=== PATIENT | female | born 1995 | race Caucasian/White ===

== ENCOUNTER 2017-09-07 22:20 | Emergency (ER) | payer BC, OTHER ==
--- NOTE | 2017-09-07 23:28 | EDPHYS ---
Physician Documentation [facility] Name: Brittany Wilson Age: 21 yrs Sex: Female : 1995 Arrival Date: 09/07/2017 Time: 22:21 Bed 14 Private MD: ED Physician Mike Huynh HPI: 09/08 00:13 This 21 yrs old Female presents to ER via Ambulatory with complaints of snw Shoulder Pain. 00:13 The patient or guardian complains of pain. right trapezius. Context: The problem was snw sustained at home, resulted from an unknown reason, The patient reports no decreased range of motion. The patient reports no obvious deformity. Onset: The symptoms/episode began/occurred suddenly, 3 day(s) ago, and became persistent. Associated signs and symptoms: The patient has no apparent associated signs or symptoms, Pertinent negatives: no fever, no swelling, no redness, no , no shortness of breath. 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 - Social history:: Smoking status: Patient/guardian denies using tobacco. ROS: 09/08 00:11 Constitutional: Negative for fever, chills, and weight loss, Eyes: Negative for injury, snw pain, redness, and discharge, ENT: Negative for injury, pain, and discharge, Neck: Negative for injury, pain, and swelling, Cardiovascular: Negative for chest pain, palpitations, and edema, Respiratory: Negative for shortness of breath, cough, wheezing, and pleuritic chest pain, Abdomen/GI: Negative for abdominal pain, nausea, vomiting, diarrhea, and constipation, Back: Negative for injury and pain, : Negative for injury, bleeding, discharge, and swelling, Skin: Negative for injury, rash, and discoloration, Neuro: Negative for headache, weakness, numbness, tingling, and seizure. MS/extremity: Positive for pain, of the right shoulder. Exam: 00:11 Constitutional: This is a well developed, well nourished patient who is awake, alert, snw and in no acute distress. Head/Face: Normocephalic, atraumatic. Eyes: Pupils equal round and reactive to light, extra-ocular motions intact. Lids and lashes normal. Conjunctiva and sclera are non-icteric and not injected. Cornea within normal limits. Periorbital areas with no swelling, redness, or edema. ENT: Nares patent. No nasal discharge, no septal abnormalities noted. Tympanic membranes are normal and external auditory canals are clear. Oropharynx with no redness, swelling, or masses, exudates, or evidence of obstruction, uvula midline. Mucous membranes moist. Neck: Trachea midline, no thyromegaly or masses palpated, and no cervical lymphadenopathy. Supple, full range of motion without nuchal rigidity, or vertebral point tenderness. No Meningismus. Chest/axilla: Normal chest wall appearance and motion. Nontender with no deformity. No lesions are appreciated. Cardiovascular: Regular rate and rhythm with a normal S1 and S2. No gallops, murmurs, or rubs. Normal PMI, no JVD. No pulse deficits. Respiratory: Lungs have equal breath sounds bilaterally, clear to auscultation and percussion. No rales, rhonchi or wheezes noted. No increased work of breathing, no retractions or nasal flaring. Abdomen/GI: Soft, non-tender, with normal bowel sounds. No distension or tympany. No guarding or rebound. No evidence of tenderness throughout. Back: No spinal tenderness. No costovertebral tenderness. Full range of motion. Skin: Warm, dry with normal turgor. Normal color with no rashes, no lesions, and no evidence of cellulitis. Neuro: Awake and alert, GCS 15, oriented to person, place, time, and situation. Cranial nerves II-XII grossly intact. Motor strength 5/5 in all extremities. Sensory grossly intact. Cerebellar exam normal. Normal gait. 00:11 Musculoskeletal/extremity: Extremities: grossly normal except: noted in the right shoulder: ROM: intact in all extremities, Circulation is intact in all extremities. Sensation intact. Vital Signs: 09/07 22:32 BP 133 / 86; Pulse 103; Resp 18; Temp 98.9; Pulse Ox 100% on R/A; Weight 86.18 kg; aa1 Height 5 ft. 7 in. (170.18 cm); Pain 8/10; 23:28 BP 116 / 84; Pulse 93; Resp 18; Pulse Ox 96% on R/A; mt 22:32 Body Mass Index 29.76 (86.18 kg, 170.18 cm) aa1 MDM: 23:06 Patient medically screened. snw 09/08 00:12 Data reviewed: vital signs, nurses notes. Data interpreted: Pulse oximetry: on room air snw is 96 %. Interpretation: acceptable. Counseling: I had a detailed discussion with the patient and/or guardian regarding: the historical points, exam findings, and any diagnostic results supporting the discharge/admit diagnosis, the presence of at least one elevated blood pressure reading (>120/80) during this emergency department visit, the need for outpatient follow up, to return to the emergency department if symptoms worsen or persist or if there are any questions or concerns that arise at home. Special discussion: Based on the history and exam findings, there is no indication for further emergent testing or inpatient evaluation. I discussed with the patient/guardian the need to see the primary care provider for further evaluation of the symptoms. Administered Medications: 09/07 23:28 Drug: Hope 5 mg-325 mg 1 tabs Route: PO; aa1 Disposition: 09/08 07:09 Co-signature as Attending Physician, Mike Huynh MD I agree with the assessment and kayleigh plan of care. Disposition: 09/07/17 23:27 Discharged to Home. Impression: Pain in right shoulder. - Condition is Stable. - Discharge Instructions: Arthralgia, Musculoskeletal Pain, Shoulder Pain, Cryotherapy, [id number], Heat Therapy. - Prescriptions for orphenadrine citrate 100 mg Oral Tablet Sustained Release - take 1 tablet by ORAL route 2 times per day As needed; 20 tablet. - Medication Reconciliation Form, Thank You Letter, Antibiotic Education, Prescription Opioid Use form. - Follow up: Private Physician; When: 1 - 2 days; Reason: Recheck today's complaints, Continuance of care, Re-evaluation by your physician. Signatures: Genny Soliman, RN RN aa1 Mike Huynh MD MD cha Therrien, Shelly, BIG DATA LEAD-C BIG DATA LEAD-Csnw
--- NOTE | 2017-09-07 23:28 | ER ---
Nurse's Notes [facility] Name: Brittany Wilson Age: 21 yrs Sex: Female : 1995 Arrival Date: 09/07/2017 Time: 22:21 Bed 14 Private MD: Diagnosis: Pain in right shoulder Presentation: 09/07 22:31 Presenting complaint: Patient states: R shoulder pain x 3 days. States, "I don't know aa1 what I did. think I pulled a muscle or something.". Transition of care: patient was not received from another setting of care. Onset of symptoms was September 04, 2017. Care prior to arrival: None. 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 - Social history:: Smoking status: Patient/guardian denies using tobacco. Screenin:34 Abuse screen: Denies threats or abuse. Denies injuries from another. Nutritional aa1 screening: No deficits noted. Tuberculosis screening: No symptoms or risk factors identified. Fall Risk None identified. Assessment: 22:34 General: Appears in no apparent distress. comfortable, Behavior is calm, cooperative, aa1 appropriate for age. Pain: Complains of pain in anterior aspect of right shoulder and posterior aspect of right shoulder Pain currently is 8 out of 10 on a pain scale. Pain began 2-3 days ago. Neuro: Level of Consciousness is awake, alert, obeys commands, Oriented to person, place, time, situation, Appropriate for age Moves all extremities. Full function Gait is steady. Respiratory: Airway is patent Respiratory effort is even, unlabored, Respiratory pattern is regular, symmetrical. GI: No signs and/or symptoms were reported involving the gastrointestinal system. : No signs and/or symptoms were reported regarding the genitourinary system. EENT: No signs and/or symptoms were reported regarding the EENT system. Derm: Skin is intact, is healthy with good turgor, Skin is pink, warm \\T\\ dry. Musculoskeletal: Circulation, motion, and sensation intact. Capillary refill < 3 seconds, Range of motion: limited in right shoulder. 23:37 Reassessment: Patient appears in no apparent distress at this time. Patient is alert, aa1 oriented x 3, equal unlabored respirations, skin warm/dry/pink. Discussed d/c \\T\\ f/u instructions with pt \\T\\ spouse; denies questions or concerns at this time. Vital Signs: 22:32 BP 133 / 86; Pulse 103; Resp 18; Temp 98.9; Pulse Ox 100% on R/A; Weight 86.18 kg; aa1 Height 5 ft. 7 in. (170.18 cm); Pain 8/10; 23:28 BP 116 / 84; Pulse 93; Resp 18; Pulse Ox 96% on R/A; mt 22:32 Body Mass Index 29.76 (86.18 kg, 170.18 cm) aa1 ED Course: 22:21 Patient arrived in ED. ds1 22:31 Genny Soliman RN is Primary Nurse. aa1 22:32 Triage completed. aa1 22:32 Arm band placed on left wrist. Patient placed in an exam room, on a stretcher. aa1 22:34 Patient has correct armband on for positive identification. Bed in low position. Call aa1 light in reach. Pulse ox on. NIBP on. 23:02 [facility]else[facility] Muro [facility]C [facility]. snw 23:02 Mike Huynh MD is Attending Physician. snw 23:37 No provider procedures requiring assistance completed. Patient did not have IV access aa1 during this emergency room visit. Administered Medications: 23:28 Drug: Bryan 5 mg-325 mg 1 tabs Route: PO; aa1 Outcome: 23:27 Discharge ordered by . snw 23:37 Discharged to home ambulatory, with significant other. aa1 23:37 Condition: good 23:37 Discharge instructions given to patient, significant other, Instructed on discharge instructions, follow up and referral plans. medication usage, Demonstrated understanding of instructions, follow-up care, medications, Prescriptions given X 1. 23:38 Patient left the ED. aa1 Signatures: Genny Soliman RN RN aa1 Kelsea Muro FNP-C J2EE ARCHITECT-CsnSuzy Steward ds1 Dolores Ludwig mt
[2017-09-07] MEDS ORDERED: HYDROCODONE/APAP 5/325 MG TAB ONE (23:46)
== END 2017-09-07 23:38 | disposition home or self-care (01) ==
LOC: ER 22:20
DX: M25.511 Pain in right shoulder (principal); X58.XXXA Exposure to other specified factors, initial encounter; Y93.9 Activity, unspecified; Y92.009 Unspecified place in unspecified non-institutional (private) residence as the place of occurrence of the external cause
CPT/HCPCS: 99283